=== PATIENT | male | born 1965 | race Two or more races ===

== ENCOUNTER 2024-10-17 07:21 | Emergency (ER) | payer OTHER ==
[~2024-10-17] VITALS: Ht 157.5 cm; Wt 54.4 kg
[2024-10-17 07:40] VITALS: BP 112/75; O2SAT 98
[2024-10-17] MEDS ORDERED: 0.9 % SODIUM CHLORIDE 1,000 ML IV SCH (08:30)
[2024-10-17] MEDS ORDERED: KETOROLAC TROMETHAMINE 30 MG VIAL IV ONE (08:30)
[2024-10-17] MEDS ORDERED: TAMSULOSIN HCL 0.4 MG CAP PO ONE ×2 (08:30→08:53)
[2024-10-17] MEDS ORDERED: ONDANSETRON HCL 2 MG/ML VIAL IV ONE (08:30)
[2024-10-17] MEDS ORDERED: ACETAMINOPHEN 500 MG GEL..CAP PO ONE (08:42)
[2024-10-17] MEDS ORDERED: KETOROLAC TROMETHAMINE 30 MG VIAL ONE (08:53)
[2024-10-17] MEDS ORDERED: ONDANSETRON HCL 2 MG/ML VIAL ONE (08:54)
[2024-10-17 09:23] LABS: BASO % 0.1 % (0.1-1.2); HEMATOCRIT 39.5 % (40.1-51.0); LYMPH # 1.13 (1.18-3.74); LYMPH % 13.8 % (19.3-53.1); MEAN CORPUSCULAR HEMOGLOBIN 30.8 pg (25.6-32.2); MONO # 1.04 (0.24-0.82); NEUT # 5.96 (1.56-6.13); NEUT % 73.2 % (34.0-71.1); PLATELET COUNT 238 K/uL (163-369); RED BLOOD COUNT 4.54 M/uL (4.63-6.08); RED CELL DISTRIBUTION WIDTH 11.9 % (11.6-14.4)
[2024-10-17 09:24] LABS: MONO % 12.7 % (4.7-12.5)
[2024-10-17 10:56] LABS: ALBUMIN 3.9 gm/dL (3.4-5.0); BILIRUBIN TOTAL 0.69 mg/dL (0.3-1.2); CALCIUM 8.7 mg/dL (8.5-10.1); CREATININE SERUM 1.73 mg/dL (0.70-1.30); GFR 40.49; GLOBULINA 3.7 G/DL (2.4-3.5); POTASSIUM 4.58 mEq/L (3.5-5.1); TOTAL PROTEIN 7.6 gm/dL (6.4-8.2)
[2024-10-17 12:56] LABS: PH,URINE 5.5 (5.0-8.0); URINE APPEARANCE Clear; URINE BILIRRUBIN Negative (NEGATIVE); URINE BLOOD Small; URINE COLOR Yellow; URINE GLUCOSE Negative (NEGATIVE); URINE KETONE Trace (NEGATIVE); URINE LEUKOCYTE Negative; URINE NITRATE Negative; URINE PROTEIN 30 (NEGATIVE); URINE UROBILINOGEN 0.2 E.U./dl
[2024-10-17 13:00] LABS: URINE BACTERIA 61.1 uL (0.0-1933); URINE EPITHELIAL CELLS 3.3 uL (0.0-38.8); URINE RBC 26.5 uL (0.0-20.8); URINE WBC 26.2 uL (0.0-23.2)
[2024-10-17 13:39] LABS: URINE CAST 0.14 uL (0.0-1.40)
== END 2024-10-17 14:41 | disposition designated cancer center or children's hospital (05) ==
LOC: ER 07:40
PROVIDERS: General Practice
DX: R10.9 Unspecified abdominal pain (principal); Z88.0 Allergy status to penicillin; N20.1 Calculus of ureter; K57.30 Diverticulosis of large intestine without perforation or abscess without bleeding